=== PATIENT | male | born 1950 | race Caucasian/White ===

== ENCOUNTER 2016-11-17 17:23 | Emergency (ER) | payer MEDICARE ==
--- NOTE | 2016-11-17 18:12 | RADIOLOGY REPORT (SQ) ---
EXAM DESCRIPTION: KNEE LEFT 4 VIEW COMPLETED DATE/TIME: 11/17/2016 5:57 pm REASON FOR STUDY: BED 4 LEFT KNEE S/P FALL WITH DEFORMITY COMPARISON: None. NUMBER OF VIEWS: Four views. TECHNIQUE: AP, lateral, and both oblique radiographic images acquired of the left knee. LIMITATIONS: None. FINDINGS: MINERALIZATION: Normal. BONES: No acute fracture or dislocation. No worrisome bone lesions. JOINT: No effusion. SOFT TISSUES: Calcifications present superior to the patella in the anterior blank. This is unlikely to represent an avulsion injury from the patella since there is no joint effusion. OTHER: No other significant finding. IMPRESSION: Cannot entirely rule out an avulsion injury involving the superior patella and the quadr iceps tendon. TECHNICAL DOCUMENTATION: JOB ID: [id number] [employer]- All Rights Reserved
--- NOTE | 2016-11-17 18:48 | ER Document Report ---
ED Extremity Problem, Lower - General Chief Complaint: Knee Injury Stated Complaint: FALL/LEFT LEG PAIN Time Seen by Provider: 11/17/16 17:48 Mode of Arrival: Stretcher Notes: 66-year-old male with a history of pre-diabetes presents with left knee pain. He sustained a fall shortly before arrival after missing a step and falling about 3 steps down onto the ground. He has an isolated injury to his left knee. Only minimal abrasion to his left fifth digit otherwise. He denies head injury, headache, neck, back pain or other injury. No new neurologic symptoms, numbness or weakness. No chest or abdominal pain. - Related Data Allergies/Adverse Reactions: Tetanus Vaccines and Toxoid Allergy (Verified 11/17/16 18:49) Past Medical History - Social History Smoking Status: Current Every Day Smoker Chew tobacco use (# tins/day): No Frequency of alcohol use: None Drug Abuse: None Family History: Reviewed & Not Pertinent Physical Exam - Vital signs Vitals: Temp Pulse Resp BP Pulse Ox 97.8 F 106 H 18 141/88 H 91 L 11/17/16 17:30 11/17/16 17:30 11/17/16 17:30 11/17/16 17:30 11/17/16 17:30 Interpretation: Hypertensive - Notes Notes: Physical Exam: GENERAL: VS as per nursing doc. Well-appearing, well-nourished and in no acute distress. HEAD: Atraumatic, normocephalic. EYES: Pupils equal round and reactive to light, extraocular movements intact ENT: Normal to inspection NECK: Normal range of motion, supple without tenderness to palpation LUNGS: Breath sounds clear to auscultation bilaterally and equal. No wheezes rales or rhonchi. HEART: Normal S1S2. Regular rate and rhythm without murmurs. Equal peripheral pulses. ABDOMEN: Soft, non-tender. EXTREMITIES: Patient has a prominent patella with a deficit noted on the superior edge of the patella. He is able to bend his knee slightly but not able to raise his foot off the bed. There is no prepatellar effusion noted. Minimal joint line tenderness. Neurovascularly intact distally NEUROLOGICAL: Cranial nerves grossly intact. Normal speech. Normal sensory and motor exams. PSYCH: Normal mood, normal affect. SKIN: Warm, dry, no cyanosis, superficial abrasion left fifth digit. There is no bony deformity or instability. Course - Re-evaluation Re-evalutation: 11/17/16 20:54 Discussed findings with the patient. Exam is consistent with a quadriceps rupture. He has been placed in a knee immobilizer and will be given crutches. He is currently in town from [place] and is deciding whether he will go back or not. We will refer him to orthopedics here and I have asked him to call tomorrow to arrange follow-up. They voiced understanding. - Vital Signs Vital signs: Temp Pulse Resp BP Pulse Ox 97.8 F 106 H 18 141/88 H 91 L 11/17/16 17:30 11/17/16 17:30 11/17/16 17:30 11/17/16 17:30 11/17/16 17:30 - Diagnostic Test Radiology reviewed: Reports reviewed - No evidence of bony abnormality other than degenerative changes Discharge - Discharge Clinical Impression: Rupture of left quadriceps tendon Condition: Good Disposition: HOME, SELF-CARE Instructions: Use of Crutches ([facility]), Ice & Elevation ([facility]), Knee Immobilizing Splint ([facility]) Additional Instructions: Call tomorrow to arrange follow-up as discussed. Continue ice and elevation. Prescriptions: Hydrocodone/Acetaminophen [Ventress 5-325 mg Tablet] 1 tab PO Q4HP PRN #14 tablet PRN Reason: For Pain Forms: Elevated Blood Pressure Referrals: DAPHNE ZAZUETA DO [ACTIVE STAFF] - Follow up in 3-5 days
--- NOTE | 2016-11-17 19:11 | RADIOLOGY REPORT (SQ) ---
EXAM DESCRIPTION: CT LT LOWER EXTREMITY WITHOUT COMPLETED DATE/TIME: 11/17/2016 7:00 pm REASON FOR STUDY: Left knee pain/Trauma COMPARISON: None. TECHNIQUE: Axial imaging performed through the left knee with reformatted coronal and sagittal imagi ng windowed for bone and soft tissues. Images saved to PACS. All CT scanners at this facility use dose modulation, iterative reconstruction, and/or weight based d osing when appropriate to reduce radiation dose to as low as reasonably achievable (ALARA). [facility]: Dose Right [facility]: CareDose [facility]: Dose Right [facility]: Teradose 4D [facility]: [employer] LIMITATIONS: None. RADIATION DOSE: 4.12 mGy. FINDINGS: SOFT TISSUES: No obvious swelling or foreign body. BONES: No acute fracture. No dislocation. Spurring along the superior aspect of the patella. MINERALIZATION: Normal. OTHER: No other significant finding. IMPRESSION: CHRONIC CHANGES WITH SPURRING ON THE SUPERIOR ASPECT OF THE PATELLA. OTHERWISE NO ACUTE TRAUMATIC FINDINGS. IF THERE IS CONCERN REGARDING POSSIBLE INJURY OF THE SOFT TISSUES OR SUPPORTING STRUCTURES, THEN ELECTIVE OUTPATIENT MRI MAY BE CONSIDERED. TECHNICAL DOCUMENTATION: JOB ID: [id number] Quality ID # [id number]: Final reports with documentation of one or more dose reduction techniques (e.g., Au tomated exposure control, adjustment of the mA and/or kV according to patient size, use of iterative reconstruction technique) 2010 [employer]- All Rights Reserved
[2016-11-17] MEDS ORDERED: KETOROLAC TROMETHAMINE INJ/PF 30 MG/1 ML SDV IV ONE (20:51)
[2016-11-17 21:31] VITALS: BP 130/77
== END 2016-11-17 21:29 | disposition home or self-care (01) ==
LOC: ER 17:23
DX: S76.112A Strain of left quadriceps muscle, fascia and tendon, initial encounter (principal); S60.417A Abrasion of left little finger, initial encounter; W10.9XXA Fall (on) (from) unspecified stairs and steps, initial encounter; F17.200 Nicotine dependence, unspecified, uncomplicated; Z88.7 Allergy status to serum and vaccine
CPT/HCPCS: 99284; 96374; 73562; 73700; L1830; J1885

== ENCOUNTER 2016-11-25 11:52 | Day surgery (SDC) | payer MEDICARE ==
--- NOTE | 2016-11-24 09:13 | EKG REPORT ---
SEVERITY:- NORMAL ECG - SINUS RHYTHM : Confirmed by: Eleln Leung 24-Nov-2016 09:13:14
[2016-11-24 09:42] LABS: APPEARANCE,URINE CLEAR; BILIRUBIN,URINE NEGATIVE (NEGATIVE); GLUCOSE, URINE NEGATIVE (NEGATIVE); KETONES,URINE NEGATIVE (NEGATIVE); LEUKOCYTE ESTERASE,URINE NEGATIVE (NEGATIVE); NITRITE,URINE NEGATIVE (NEGATIVE); PROTEIN,URINE NEGATIVE (NEGATIVE); URINE SPECIFIC GRAVITY 1.011; UROBILINOGEN,URINE NEGATIVE mg/dL (<2.0)
[2016-11-24 09:48] LABS: ABSOLUTE BASOPHILS # (AUTO) 0.1 10^3/uL (0.0-0.2); ABSOLUTE EOSINOPHILS # (AUTO) 0.4 10^3/uL (0.0-0.6); ABSOLUTE LYMPHOCYTES (AUTO) 2.9 10^3/uL (0.5-4.7); ABSOLUTE MONOCYTES (AUTO) 1.6 10^3/uL (0.1-1.4); BASOPHILS % (AUTO) 0.8 % (0-2); EOSINOPHILS % (AUTO) 3.2 % (0-6); HEMATOCRIT 46.5 % (37.9-51.0); HEMOGLOBIN 15.7 g/dL (13.5-17.0); HGB HCT DIFFERENCE 0.6; MEAN CORPUSCULAR HEMOGLOBIN 31.3 pg (27.0-33.4); MEAN CORPUSCULAR HGB CONC 33.7 g/dL (32.0-36.0); MEAN CORPUSCULAR VOLUME 93 fl (80-97); RED CELL DISTRIBUTION WIDTH 14.1 % (11.5-14.0)
[2016-11-24 10:10] LABS: ANION GAP 12 (5-19); BLOOD UREA NITROGEN 15 mg/dL (7-20); CALCIUM 9.6 mg/dL (8.4-10.2); CARBON DIOXIDE 28 mmol/L (22-30); CHLORIDE 103 mmol/L (98-107); CREATININE RESULT 1.09 mg/dL (0.52-1.25); GLUCOSE 94 mg/dL (75-110); POTASSIUM 4.7 mmol/L (3.6-5.0); SODIUM 142.5 mmol/L (137-145)
--- NOTE | 2016-11-24 12:25 | RADIOLOGY REPORT (SQ) ---
EXAM DESCRIPTION: CHEST PA/LATERAL COMPLETED DATE/TIME: 11/24/2016 10:28 am REASON FOR STUDY: PRE OP COMPARISON: None. EXAM PARAMETERS: NUMBER OF VIEWS: two views TECHNIQUE: Digital Frontal and Lateral radiographic views of the chest acquired. RADIATION DOSE: NA LIMITATIONS: none FINDINGS: LUNGS AND PLEURA: No opacities, masses or pneumothorax. No pleural effusion. MEDIASTINUM AND HILAR STRUCTURES: No masses or contour abnormalities. HEART AND VASCULAR STRUCTURES: Heart normal size. No evidence for failure. BONES: No acute findings. HARDWARE: None in the chest. OTHER: No other significant finding. IMPRESSION: NO SIGNIFICANT RADIOGRAPHIC FINDING IN THE CHEST. TECHNICAL DOCUMENTATION: JOB ID: [id number] [employer]- All Rights Reserved
[~2016-11-25 11:52] MED LIST: CEFAZOLIN 2 GM/D5W RTU 2 GM/50 ML RTUPB IV PRN; LACTATED RINGERS 1000 ML IV PRN; LIDOCAINE 0.5% INJ-PF (5 MG/ML) 50 ML SDV SUBCUT PRN
[2016-11-25] MEDS ORDERED: FENTANYL CITRATE INJ/PF 100 MCG/2 ML AMPUL ONE ×2 (15:10→15:11)
[2016-11-25] MEDS ORDERED: BUPIVACAINE HCL 0.5 % INJ/PF 30 ML SDV ONE (15:10)
[2016-11-25] MEDS ORDERED: MIDAZOLAM 2 MG/2 ML INJ ONE (15:11)
[2016-11-25] MEDS ORDERED: PROPOFOL INJ 200 MG/20 ML VIAL IV ONE (15:11)
[2016-11-25] MEDS ORDERED: MORPHINE SULFATE 10 MG/ML INJ ONE (15:12)
[2016-11-25] MEDS ORDERED: PROMETHAZINE HCL INJ 25 MG/1 ML VIAL IV PRN (16:11)
[2016-11-25] MEDS ORDERED: MORPHINE SULFATE 10 MG/ML INJ IV PRN (16:11)
[2016-11-25] MEDS ORDERED: DIPHENHYDRAMINE HCL 50 MG/ML VIAL IV PRN (16:11)
[2016-11-25] MEDS ORDERED: MEPERIDINE HCL/PF INJ 25 MG/1 ML DISP.SYRIN IV PRN (16:11)
[2016-11-25] MEDS ORDERED: FENTANYL CITRATE INJ/PF 100 MCG/2 ML AMPUL IV PRN (16:11)
--- NOTE | 2016-11-25 17:26 | Operative Report ---
Operative Report DATE OF SURGERY: 11/25/16 PREOPERATIVE DIAGNOSIS: Left Quadriceps tendon tear POSTOPERATIVE DIAGNOSIS: Same OPERATION: Left Quadriceps tendon repair SURGEON: ANIL RAMOS ANESTHESIA: GA TISSUE REMOVED OR ALTERED: none COMPLICATIONS: none ESTIMATED BLOOD LOSS: 10mL INTRAOPERATIVE FINDINGS: as above PROCEDURE: After receiving 2 g of Ancef in the preop holding area patient left knee was marked. Patient was brought to the operating room where the patient was successfully sedated and intubated. A thigh tourniquet was applied to the left thigh and a bump was placed under his buttocks. The left lower extremity was prepped and draped in a normal sterile surgical fashion. Timeout was done identifying the left knee as the correct site. Esmarch was used to exsanguinate the extremity and the tourniquet was inflated to 300 mmHg. A longitudinal incision over the knee was done using a 10 blade. Deep knife was using to quickly exposed the torn quadriceps tendon. Dissection was taken down distally exposing the patellar tendon. Suction was used to remove all of the fluid and hematoma. The edges of the quadriceps tendon and superior pole of patella were debrided and cleaned with Tirso, and knife. I used 2 #2 fiber tape to do my Krakw stitch in the quadriceps tendon. After the 4 strands of the fiber tape were coming out of the quadriceps I clamped these and then proceeded to do my 3 drill holes in the patella. I use a 2.0 drill bit and made separate stab incisions parallel with the patellar tendon fibers to expose him distally. I used a Nur suture passer and passed it from the superior pole and came out of the stab incisions distally to capture Vicryl which I pulled through them. The Vicryl was used as a suture passer and I was used the fiber wires and freedom through them through the superior pole and have him come out the inferior pole. After 4 strands were passed, one most lateral one most medial and the 2 inner tails were passed through the middle drill hole. The knee was placed in full extension and I was able to pull on the fiber strands to make sure that the quadriceps tendon would abut the superior pole of the patella. I was able then to go and tying knots securing the quadriceps tendon to the superior pole. After securing the tendon I proceeded then to use 0 Vicryl to repair the medial and lateral retinaculum. I used 0 Vicryl to repair the stab incisions in the patellar tendon. I placed the knee from 0 to 90 making sure that my repair held and it did. At this point I proceeded to close the wound with 0 Vicryl to Vicryl and corona for skin. Xeroform 4 x 4 dressing and Sof-Rol was applied to the wound and lower extremity. I overwrapped it with an Jay bandage. Tourniquet was let down and then the drapes were removed. Patient was placed in a hinged knee brace locked at 0. Patient was successfully extubated and sent to PACU in stable condition.
[2016-11-25] MEDS ORDERED: OXYCODONE-ACETAMINOPHEN 5-325 MG TABLET PO PRN ×2 (17:27)
--- NOTE | 2016-11-25 17:36 | PDOC DISCHARGE SUMMARY ---
Discharge Summary (SDC) - Discharge Final Diagnosis: Left quadriceps tendon repair Date of Surgery: 11/25/16 Discharge Date: 11/25/16 Treatment or Instructions: Keep brace locked at 0. Okay to weight-bear as tolerated with crutches and brace. Brace to be worn at all times except for showers. Dressing removed in 4 days then okay to shower lower extremity. Instructed to follow-up in 10-14 days with me in the office. Prescriptions: Ondansetron HCl [Zofran 4 mg Tablet] 1 - 2 tab PO Q8HP PRN #20 tablet PRN Reason: Aspirin [Aspirin 325 mg Tablet] 325 mg PO DAILY PRN #30 tab PRN Reason: Docusate Sodium [Colace 100 mg Capsule] 100 mg PO BID #60 capsule Oxycodone HCl/Acetaminophen [Percocet 5-325 mg Tablet] 1 - 2 tab PO ASDIR PRN # 60 tablet PRN Reason: Discharge Diet: As Tolerated Respiratory Treatments at Home: Deep Breathing/Coughing Discharge Activity: Keep Legs Elevated, No Lifting/Push/Pulling Home Care Assistance: None Needed Adaptive Devices on Discharge: Axillary Crutches Report the Following to Your Physician Immediately: Shortness of Breath, Vomiting, Increase in Pain, Fever over 101 Degrees, Unusual Bleeding, Redness, Swelling, Warmth, Increased Soreness, Drainage-Yellow, Drainage-Schaffer, Drainage- Green, Drainage-Foul Smelling
[2016-11-25] MEDS ORDERED: ONDANSETRON HCL INJ/PF 4 MG/2 ML SDV ONE ×2 (18:42→20:35)
[2016-11-25] MEDS ORDERED: LIDOCAINE 2% INJ-PF (20 MG/ML) 10 ML AMPUL ONE (18:42)
[2016-11-25] MEDS ORDERED: DEXAMETHASONE SOD PHOSPHATE INJ 4 MG/1 ML VIAL ONE (18:42)
[2016-11-25] MEDS ORDERED: KETOROLAC TROMETHAMINE 60 MG/2 ML SDV ONE (18:42)
[2016-11-25 21:47] VITALS: BP 123/84
== END 2016-11-25 23:20 | disposition home or self-care (01) ==
LOC: OROUT 11:52 → 2N 19:40 → OROUT 23:20
PROVIDERS: ATTEND Orthopaedic Surgery
PROC: 0KQR0ZZ Repair Left Upper Leg Muscle, Open Approach (ICD-10-PCS; principal; 2016-11-25 15:00)
DX: S76.192A Other specified injury of left quadriceps muscle, fascia and tendon, initial encounter (principal); W10.9XXA Fall (on) (from) unspecified stairs and steps, initial encounter; E11.9 Type 2 diabetes mellitus without complications; I10 Essential (primary) hypertension; Z79.899 Other long term (current) drug therapy; Z79.84 Long term (current) use of oral hypoglycemic drugs; Z88.7 Allergy status to serum and vaccine
CPT/HCPCS: 93005; 36415; 82962; 85025; 80048; 81001; 83036; 71020; 93010; 27385; J2250; J1100; J1885; J3010; J2270; J2405; J2704; J3490; J0690; 1250